=== PATIENT | female | born 1985 | race Caucasian/White ===

== ENCOUNTER 2017-08-09 13:41 | Emergency (ER) | payer SELFPAY, MEDICAID ==
[2017-08-09] MEDS: LORAZEPAM 1 MG TAB PO (14:28)
[2017-08-09] MEDS: LEVETIRACETAM 500 MG TAB PO (14:28)
== END 2017-08-09 16:26 | disposition home or self-care (01) ==
LOC: E/R 13:41
DX: G40.909 Epilepsy, unspecified, not intractable, without status epilepticus (principal)
CPT/HCPCS: 70450; 99284-25

== ENCOUNTER 2017-11-29 16:05 | Emergency (ER) | payer OTHER ==
[2017-11-29] MEDS: SOD CHLORIDE 0.9% 1,000 ML IV (16:35)
[2017-11-29] MEDS: LEVETIRACETAM 1000 MG (PMX) 100 ML IVPB (16:39)
[2017-11-29] MEDS: KETOROLAC 15 MG INJ IV (17:05)
[2017-11-29] MEDS: BACITRACIN 0.9 GM OINT TOP (17:39)
== END 2017-11-29 18:17 | disposition home or self-care (01) ==
LOC: E/R 16:05
DX: G40.909 Epilepsy, unspecified, not intractable, without status epilepticus (principal); S00.81XA Abrasion of other part of head, initial encounter; X58.XXXA Exposure to other specified factors, initial encounter; Y92.9 Unspecified place or not applicable
CPT/HCPCS: 96374; 96375; 99284-25